=== PATIENT | male | born 1990 | race Hispanic/Latino ===

== ENCOUNTER 2021-12-15 07:44 | Emergency (ER) | payer OTHER ==
[~2021-12-15] VITALS: Ht 162.6 cm; Wt 72.6 kg
[2021-12-15] MEDS ORDERED: TETANUS/DIPHTHERIA TOXOID [ADULT] 0.5 ML VIAL IM SCH (08:00)
[2021-12-15] MEDS ORDERED: KETOROLAC 60 MG VIAL (30MG/ML) IM SCH (08:00)
[2021-12-15] MEDS ORDERED: IBUP-2070 PO (08:27)
[2021-12-15 09:59] VITALS: BP 130/74
== END 2021-12-15 10:00 | disposition home or self-care (01) ==
LOC: EDH 07:44
DX: S52.501A Unspecified fracture of the lower end of right radius, initial encounter for closed fracture (principal); R55 Syncope and collapse; G40.909 Epilepsy, unspecified, not intractable, without status epilepticus; X58.XXXA Exposure to other specified factors, initial encounter; Y93.89 Activity, other specified; Y92.89 Other specified places as the place of occurrence of the external cause; Y99.8 Other external cause status
CPT/HCPCS: 29125; 73110; 90471; 90714; 96372; 99284; J1885

== ENCOUNTER 2022-04-30 08:47 | Emergency (ER) | payer OTHER ==
[~2022-04-30] VITALS: Ht 177.8 cm; Wt 79.4 kg
[~2022-04-30 08:47] MED LIST: IBUP-2070 PO
[2022-04-30 08:51] VITALS: BP 127/83
[2022-04-30] MEDS ORDERED: L.E.T. GEL 3ML SYG TP ONE (09:30)
[2022-04-30] MEDS ORDERED: IBUP-2070 PO (10:34)
== END 2022-04-30 11:10 | disposition home or self-care (01) ==
LOC: EDH 08:47
DX: M79.671 Pain in right foot (principal); M79.672 Pain in left foot; Z79.1 Long term (current) use of non-steroidal anti-inflammatories (NSAID)